=== PATIENT | female | born 1995 | race Two or more races ===

== ENCOUNTER 2017-02-22 16:27 | Inpatient (IN) | payer MEDICAID ==
[~2017-02-22] VITALS: Ht 165.1 cm; Wt 97.8 kg
--- NOTE | ~2017-02-22 | CON ---
PATIENT'S NAME: FINN PEPPER [facility] AGE: 21 Y [address] ROOM: [id number] [place] [address] LOCATION: GOBS ADMIT DATE: 02/22/2017 Consultation DISCHARGE DATE: 02/23/2017 FAMILY PHYSICIAN: Christopher Black MD ATTENDING PHYSICIAN: Alon Bellamy This is a 21-year-old with a due date of 07/10/2017 by her last menstrual period. She had a collage ultrasound at 11 weeks that we [facility] to confirm her due date. She had an ultrasound at [facility] 2 days ago that also confirmed her due date. Her blood type is A positive, antibody screen negative, rubella immune, RPR nonreactive, hepatitis B nonreactive, HIV negative, GC and chlamydia negative. Again, the ultrasound showed 20 weeks 2 days, two days ago. She came to the clinic today to see Dr. Bellamy and he found a big bulging bag of water within the vagina. She was sent to Labor and Delivery, where she had spontaneous rupture of membranes. I did an ultrasound. The baby was found to be breech measuring 18-20 weeks. There is still cardiac activity, but no fluid around the fetus. It looks like some umbilical cord was going down through the dilated cervix on ultrasound. It was difficult to tell dilation by her cervical check. I talked to the patient and her family that there is no chance of viability at this point and at this point, she is feeling contractions, so I think we will just watch and wait and see what happens. Both Dr. Bellamy and I are available [facility]. We also talked about the diagnosis of incompetent cervix and things that we can do in the future including cerclage and Kim progesterone shots. MD AIDA SELLERS/kalani /[id number] d: 02/23/17 0647 t: 03/01/17 1853, CONSULTATION REPORT
--- NOTE | ~2017-02-22 | OR ---
PATIENT'S NAME: FINN PEPPER [facility] AGE: 21 Y [address] ROOM: [facility] [place], [place] [address] LOCATION: GOBS ADMIT DATE: 02/22/2017 OR/Procedure Report DISCHARGE DATE: 02/23/2017 FAMILY PHYSICIAN: Christopher Black MD ATTENDING PHYSICIAN: Alon Bellamy SURGEON: Pavithra Crystal MD SECURITY SPECIALIST: DATE OF PROCEDURE: 02/23/2017 The patient is found to be getting more uncomfortable. She had spontaneous rupture of membranes after having hourglassing membranes through her cervix giving us a diagnosis of incompetent cervix. Please see my previous consult. She is 20 weeks gestation, understands there is no chance of viability. She had spontaneous rupture of membranes at 1702. She went on to deliver the legs and body and arms of the breech fetus, but felt like the head was entrapped in the cervix thus receiving IV fentanyl for pain. I placed 600 of Cytotec at 2315 in the vagina alongside the fetus. At 2330 hours, I placed another 200 rectally. At this point, we just put the bed back together and let her relax in bed with the dose of fentanyl and she went on to deliver that entrapped head and delivered the fetus. There had been cardiac activity on ultrasound earlier in the evening, but by the time baby was delivered, there was a demise with score of 0 and 0 and signs of maceration of the fetus. The delivery was at 0018. Another 700 of Cytotec was placed vaginally and at 0315, the placenta was in the vagina and was felt to be in total. There were no abnormalities of the fetus or the placenta and given her diagnosis of incompetent cervix, I do not think we need to give high consideration of chromosome abnormality, but I did offer the patient autopsy and chromosome analysis or microarray and she declines at this point. Her lochia is normal. We will observe and discharge to home later with pain medicine as needed. MD AIDA SELLERS/kalani /[id number] d: 02/23/17 0745 t: 03/01/17 1856, OPERATIVE SUMMARY
[2017-02-22 17:23] LABS: BASOPHIL % 0.2 %; EOSINOPHIL # 0.1 K/uL (0.0-0.5); EOSINOPHIL % 1.1 %; HEMATOCRIT 40.1 % (33.0-46.0); HEMOGLOBIN 13.8 g/dL (11.0-15.0); IMMATURE GRANULOCYTE % 0.3 %; LYMPHOCYTE # 2.4 K/uL (0.8-4.0); LYMPHOCYTE % 26.8 %; MCH 31.4 pg (27.0-34.0); MCHC 34.4 gm/dL (32.0-36.5); MCV 91.3 fl (83.0-98.0); MONOCYTE # 0.6 K/uL (0.0-1.0); MONOCYTE % 6.5 %; MPV 10.2 fl (9.4-12.4); NEUTROPHIL # (ANC) 5.8 K/uL (1.8-7.8); NEUTROPHIL % 65.1 %; NRBC % 0 /100WBC (0-0.00); PLATELET COUNT 311 K/uL (150-450); RBC 4.39 M/uL (3.50-5.00); RDW-CV 12.6 % (11.9-14.6); WBC 8.9 K/uL (4.0-11.0)
[2017-02-22] MEDS ORDERED: PRENATAL 1+1)(P1 TAB PO (17:28)
--- NOTE | 2017-02-23 05:11 | NUR ---
VSS, bleeding minimal, patient is resting now. nothing for pain, tidy done. will go home this am.
[2017-02-23] MEDS ORDERED: PERCOCET 5-3251 EACH PO (08:03)
== END 2017-02-23 13:15 | disposition disaster alternative care site (69) | DRG 775 ==
LOC: GOBS 16:27
PROVIDERS: ADMIT Obstetrics & Gynecology Obstetrics
DX: O34.32 Maternal care for cervical incompetence, second trimester (principal); Z37.1 Single stillbirth; Z3A.20 20 weeks gestation of pregnancy
CPT/HCPCS: J2001; J2590; J3010; J7120

== ENCOUNTER 2017-04-24 04:31 | Emergency (ER) | payer MEDICAID ==
--- NOTE | ~2017-04-24 | ER ---
PATIENT'S NAME: FINN PEPPER [facility] AGE: 22 Y [address] ROOM: [place] [id number] LOCATION: [facility] ADMIT DATE: 04/24/2017 ER/Outpatient Report DISCHARGE DATE: 04/24/2017 FAMILY PHYSICIAN: Christopher Black MD ATTENDING PHYSICIAN: Vipin Christine Time of arrival: 0431 hours. Time of Evaluation: 0439 hours. CHIEF COMPLAINT: Abdominal pain, midepigastric. HISTORY OF PRESENT ILLNESS: The patient is a 22-year-old female, who presents to the emergency department today with chief complaint of midepigastric abdominal pain. She reports this started one week. She reports it wakes her up at night. She does report 2 episodes of vomiting. She does report she had a miscarriage in February and has had a positive test last night. She is G2, P0, A1. She reports the pain is sharp, burning type pain. It is currently 5/10 in severity. Denies any fevers or chills. Denies any lower abdominal pain. No vaginal bleeding or vaginal discharge. No urinary frequency, urgency, or painful urination. PAST MEDICAL HISTORY: None. PAST SURGICAL HISTORY: None. SOCIAL HISTORY: The patient denies any tobacco, alcohol, or illicit drug use. ALLERGIES: NO KNOWN DRUG ALLERGIES. MEDICATIONS: None. REVIEW OF SYSTEMS: All systems are reviewed by myself and are negative with the exception of those discussed in HPI and past medical history. PHYSICAL EXAMINATION: VITAL SIGNS: Weight 97.2 kg. Blood pressure 155/88, pulse 91, respiratory rate 16, temperature 98.8, oxygen saturation 96% on room air. GENERAL: The patient is a 22-year-old female, who is well developed, mildly PATIENT'S NAME: FINN PEPPER [facility] AGE: 22 Y [address] ROOM: [place], [place] [address] LOCATION: [facility] ADMIT DATE: 04/24/2017 ER/Outpatient Report DISCHARGE DATE: 04/24/2017 FAMILY PHYSICIAN: Christopher Black MD ATTENDING PHYSICIAN: Vipin Christine obese, in no acute distress. HEENT: Normocephalic, atraumatic. Pupils are equal, round, and reactive to light. Oropharynx is clear. NECK: Supple. There is no nuchal rigidity. CARDIOVASCULAR: Regular rate and rhythm. No murmurs, rubs, or gallops. LUNGS: Clear to auscultation bilaterally. No wheezes, rales, or rhonchi. ABDOMEN: Soft. [id number] midepigastric tenderness, but the patient has no rebound, rigidity, or guarding. Positive bowel sounds. MUSCULOSKELETAL: The patient moves all 4 extremities. SKIN: Warm and dry. There are no rashes or lesions. No pretibial edema noted. LABORATORY DATA AND X-RAYS: Labs and x-rays are obtained. CBC is unremarkable. Serum hCG is 760. CMP is unremarkable. LFTs are normal. Lipase is normal. H. pylori is positive. A bedside ultrasound was performed by myself. It does reveal a common bile duct of 3.5 mm. There is no evidence of pericholecystic fluid. There is no gallbladder wall thickening. No obvious stones are noted. IMPRESSION: 1. Helicobacter pylori gastritis. 2. Positive . 3. Acute midepigastric abdominal pain. 4. Initial visit. EMERGENCY DEPARTMENT COURSE: The patient was brought back to the examination room. Seen and evaluated by myself. Laboratory analysis and imaging are obtained as described above. The patient is given 4 mg of Zofran ODT as well as a GI cocktail orally. This does result in complete resolution of the patient's symptoms. I have discussed results with the patient and her mother at the bedside. I have written a prescription for clarithromycin, amoxicillin, Protonix as well as Reglan for home. I have discussed following up with primary care doctor in 2- 3 days for re-evaluation as well as [employer]. I do feel the patient is exceedingly low risk of ectopic at this time, although I did not see a gestational sac in the uterus. There is no obvious adnexal tenderness. She has no tenderness in her lower abdomen. I have discussed risk factors and signs and symptoms to look for potential ectopic. She is to return if she has any vaginal bleeding, worsening abdominal pain, cramping, or any other concerns to the emergency department as soon as possible. The patient is agreeable. She is without further questions at this time. We have also discussed endoscopy after . DISPOSITION: The patient discharged home in good condition. PATIENT'S NAME: FINN PEPPER [facility] AGE: 22 Y [address] ROOM: [place], [place] [address] LOCATION: [facility] ADMIT DATE: 04/24/2017 ER/Outpatient Report DISCHARGE DATE: 04/24/2017 FAMILY PHYSICIAN: Christopher Black MD ATTENDING PHYSICIAN: Vipin Christine DO GIANNA QUEEN/kalani /[id number] d: 04/24/1758 t: 04/25/172006, OUTPATIENT REPORT
[~2017-04-24 04:31] MED LIST: PERCOCET 5-3251 EACH PO; PRENATAL 1+1)(P1 TAB PO
[2017-04-24 05:02] LABS: BASOPHIL % 0.3 %; EOSINOPHIL # 0.1 K/uL (0.0-0.5); EOSINOPHIL % 1.1 %; HEMATOCRIT 39.3 % (33.0-46.0); HEMOGLOBIN 13.3 g/dL (11.0-15.0); IMMATURE GRANULOCYTE % 0.1 %; LYMPHOCYTE # 2.7 K/uL (0.8-4.0); LYMPHOCYTE % 36.1 %; MCH 31.1 pg (27.0-34.0); MCHC 33.8 gm/dL (32.0-36.5); MONOCYTE # 0.7 K/uL (0.0-1.0); MONOCYTE % 8.9 %; MPV 9.8 fl (9.4-12.4); NEUTROPHIL # (ANC) 3.9 K/uL (1.8-7.8); NEUTROPHIL % 53.5 %; NRBC % 0 /100WBC (0-0.00); PLATELET COUNT 332 K/uL (150-450); RBC 4.27 M/uL (3.50-5.00); RDW-CV 12.9 % (11.9-14.6); WBC 7.3 K/uL (4.0-11.0)
[2017-04-24 05:20] LABS: ALK PHOS 43 IU/L (33-138); ALT 46 IU/L (12-78); ANION GAP 12.4 (10.0-19.0); AST 30 IU/L (10-40); BLOOD UREA NITROGEN 7 mg/dL (6-24); CALCIUM 8.7 mg/dL (8.5-10.5); CHLORIDE 106 mMol/L (96-110); CO2 25 mMol/L (22-32); CREATININE 0.7 mg/dL (0.5-1.1); POTASSIUM 3.4 mMol/L (3.7-5.1); SODIUM 140 mMol/L (135-145); TOTAL BILIRUBIN 0.4 mg/dL (0.0-1.5)
== END 2017-04-24 05:39 | disposition disaster alternative care site (69) ==
LOC: GMED 04:31
PROVIDERS: Emergency Medicine
DX: K29.70 Gastritis, unspecified, without bleeding (principal); B96.81 Helicobacter pylori [H. pylori] as the cause of diseases classified elsewhere; Z32.01 Encounter for pregnancy test, result positive